=== PATIENT | female | born 1980 | race Two or more races ===

== ENCOUNTER 2018-01-15 00:59 | Emergency (ER) | payer OTHER ==
--- NOTE | 2018-01-15 01:12 | PDOC ---
History of Present Illness - General Chief Complaint: Pain, Acute Stated Complaint: PIMLES UNDER ARM X 1 YR/PAIN TO RIGHT BREAST Time Seen by Provider: 01/15/18 01:12 - History of Present Illness Initial Comments: This 37-year-old woman, who speaks only Slovenian and recently migrated here from [place] (approximately 3 months ago), presents with painful swelling of the right breast for the last 3 days. History is interpreted by friend. Patient was started on Keflex 500 mg 3 times a day approximately a month ago for axillary cellulitis/abscesses. Although the patient had taken the medication intermittently over the last month (she states because of fasting considerations during ), the left axillary boils have largely resolved. A few days ago, she noticed mildly erythematous, mildly edematous, tender areas of the medial portion of the right breast. No previous history of abscesses/ cellulitis of the breast. Patient is not breast feeding and denies trauma to the right breast. No nipple discharge noted. No history of fever/chills. Patient states that she believes she has an ALLERGY to medications, possibly an antibiotic but she has no idea of the name of the medication. Past History - Past Medical History Home Medications: Ambulatory Orders Cephalexin [Keflex] 500 mg PO BID 01/15/18 Diclofenac Sodium 75 mg PO DAILY 01/15/18 Omeprazole 20 mg PO DAILY 01/15/18 Review of Systems - Review of Systems Able to Perform ROS?: Yes Comments:: 12 point review of systems is negative except for what is noted in the history of present illness *Physical Exam - Physical Exam Comments: GENERAL: Adult female, Slovenian speaking only, in no acute distress HEAD: Normal with no signs of trauma. EYES: PERRLA, EOMI, sclera anicteric, conjunctiva clear. ENT: Ears normal, nares patent, oropharynx clear without exudates. Dry mucous membranes. NECK: Normal range of motion, supple without lymphadenopathy, JVD, or masses. LUNGS: Breath sounds equal, clear to auscultation bilaterally. No wheezes, and no crackles. CHEST WALL: Right breast-1 cm x 2 cm mildly erythematous, mildly tender, nonfluctuant area of the medial mid breast No open area in the region; no discharge from the area of tenderness HEART:Regular rate and rhythm, normal S1 and S2 without murmur, rub or gallop. ABDOMEN:.normal bowel sounds No guarding,tenderness or rebound.No masses No distention. EXTREMITIES: Normal range of motion, no edema. No clubbing or cyanosis. No erythema, or tenderness. NEUROLOGICAL: Cranial nerves II through XII grossly intact. Normal speech. No focal neurological deficits. MUSCULOSKELETAL: Back non-tender to palpation, no CVA tenderness SKIN: Warm, Dry, normal turgor, no rashes or lesions noted. Medical Decision Making - Medical Decision Making This 37-year-old woman, recently migrated here from [place], presents with painful , tender, erythematous areas of the right breast (medially). No history of skin break or other trauma to the breast and patient is not breast- feeding. Although the origin of the lesion is unclear, the patient does have recent history of skin abscesses (all have resolved with antibiotic treatment; patient has never needed an incision and drainage procedure). Because area is erythematous and tender, patient will be advised to continue the Keflex prescribed for her axillary abscesses. Since patient is very unclear which medication/antibiotic that she is ALLERGIC to, and has tolerated Keflex without adverse reaction or ALLERGIC reaction, we will keep her on Keflex at this time. Patient given 2 referrals: Dr. Flowers for general medicine and Maulik mohr for evaluation of the breast lesion . She should return to ER if she has extreme pain, drainage, fever/chills *DC/Admit/Observation/Transfer Diagnosis at time of Disposition: Cellulitis of right breast - Discharge Dispostion Disposition: HOME Condition at time of disposition: Stable - Referrals Referrals: Tom Cruz MD [Staff Physician] - Jose Flowers MD [Staff Physician] - - Patient Instructions Printed Discharge Instructions: DI for Mastitis Additional Instructions: Local warmth to the area of right breast Continue Keflex 500 mg 3 times a day as prescribed Follow-up with Dr.Ashikari mohr for breast evaluation Follow-up with or for general medical care as discussed - Post Discharge Activity
[2018-01-15 01:17] VITALS: BP 151/110; PULSE 100; BMI 46.8
== END 2018-01-15 01:42 | disposition home or self-care (01) ==
LOC: FER 00:59
DX: N61.0 Mastitis without abscess (principal)
CPT/HCPCS: 99281-25

== ENCOUNTER 2018-03-07 11:26 | Day surgery (SDC) | payer OTHER ==
[2018-03-07 11:44] VITALS: BMI 45.4
[2018-03-07] MEDS ORDERED: ACETAMINOPHEN 1000 MG/100 ML VIAL (NON FORMULARY) IVPB ONE (12:40)
--- NOTE | 2018-03-07 12:40 | HP ---
History & Physical Update - History History: No Change - Physical Physical: No Change - Assessment Assessment: No Change - Plan Plan: No Change
[2018-03-07] MEDS ORDERED: IBUPROFEN 800 MG/8 ML IJ IVPB SCH (12:45)
[2018-03-07] MEDS ORDERED: DEXTROSE 5%-0.45% SALINE 1,000 ML IV SCH (12:45)
[2018-03-07] MEDS ORDERED: LIDOCAINE HCL/PF 2% SDV 5ML VIAL ONE (13:14)
[2018-03-07] MEDS ORDERED: PROPOFOL 20 ML ONE ×3 (13:14→13:15)
[2018-03-07] MEDS ORDERED: MIDAZOLAM HCL 2 MG/2 ML SINGLE DOSE VIAL ONE (13:15)
[2018-03-07] MEDS ORDERED: ceFAZolin SODIUM 1 GM VIAL ONE (13:29)
[2018-03-07] MEDS ORDERED: ceFAZolin SODIUM 1 GM VIAL IVPB ONE (13:30)
[2018-03-07] MEDS ORDERED: IOHEXOL 300 MG/ML INFUS..BTL IV ONE (13:38)
[2018-03-07] MEDS ORDERED: LACTATED RINGERS SOLUTION 1,000 ML IV SCH (14:00)
[2018-03-07] MEDS ORDERED: oxyCODONE HCL 5 MG TABLET PO PRN (14:00)
[2018-03-07] MEDS ORDERED: PROMETHAZINE HCL 25 MG/1 ML VIAL IVPUSH PRN (14:00)
[2018-03-07] MEDS ORDERED: ONDANSETRON 4 MG/2 ML VIAL IVPUSH PRN (14:00)
[2018-03-07 14:33] VITALS: TEMP 98.5
[2018-03-07] MEDS ORDERED: ONDANSETRON 4 MG/2 ML VIAL ONE (15:37)
[2018-03-07] MEDS ORDERED: ONDANSETRON 4 MG/2 ML VIAL IVPUSH ONE (15:40)
[2018-03-07] MEDS ORDERED: oxyCODONE HCL 5 MG TABLET PO ONE (16:30)
[2018-03-07] MEDS ORDERED: oxyCODONE HCL 5 MG TABLET ONE (16:34)
[2018-03-07] MEDS ORDERED: IBUPROFEN 800 MG/8 ML IJ IVPB ONE ×2 (16:45→17:03)
[2018-03-07] MEDS ORDERED: PROMETHAZINE HCL 25 MG/1 ML VIAL ONE (16:53)
[2018-03-07] MEDS ORDERED: PHENAZOPYRIDINE HCL 100 MG TABLET (FP) PO STA (17:47)
[2018-03-07] MEDS ORDERED: PHENAZOPYRIDINE HCL 100 MG TABLET (FP) PO ONE (17:58)
[2018-03-07 19:12] VITALS: BP 120/71; PULSE 67
--- NOTE | 2018-04-06 10:43 | OP ---
DATE OF OPERATION: 03/07/2018 PREOPERATIVE DIAGNOSIS: Renal colic and left hydronephrosis. POSTOPERATIVE DIAGNOSIS: Renal colic and left hydronephrosis. PROCEDURE: Cystoscopy, left retrograde pyelogram, left ureteral stent placement. SURGEON: Darion Mahajan MD ESTIMATED BLOOD LOSS: Minimal. PREOPERATIVE INDICATIONS: Patient is a 37-year-old female with a history of left-sided renal colic. CT reveals mild hydronephrosis. However, no evidence of any obstruction seen distally. She comes to the OR cystoscopy, stent, and retrograde pyelogram. DESCRIPTION OF PROCEDURE: Patient brought to the OR, placed on the table in supine position, given general anesthesia and IV antibiotics, and placed on modified lithotomy position. The groin was prepped and draped sterilely. Cystoscopy was performed. The bladder was unremarkable. No tumors or stones were seen. Left UO was then visualized. Wire was passed up into the left kidney, and an open-ended catheter was placed. Retrograde pyelogram revealed relatively normal anatomy with maybe a slight dilation. No evidence of an obstruction was seen. A 6 x 24 JJ ureteral stent was placed over the wire, 1 loop in the bladder and 1 loop in the kidney. Bladder was emptied. Patient was woken up. DARION MAHAJAN M.D. [id number]
== END 2018-03-07 19:05 | disposition home or self-care (01) ==
LOC: JASU-SURG 11:26
PROVIDERS: ATTEND Urology
PROC: 0T778DZ Dilation of Left Ureter with Intraluminal Device, Via Natural or Artificial Opening Endoscopic (ICD-10-PCS; principal; 2018-03-07 10:30)
PROC: BT1FYZZ Fluoroscopy of Left Kidney, Ureter and Bladder using Other Contrast (ICD-10-PCS; 2018-03-07 10:30)
DX: N23 Unspecified renal colic (principal); N13.30 Unspecified hydronephrosis
CPT/HCPCS: 76000-TC-FY; 84703; 94760; J0131

== ENCOUNTER 2018-04-06 22:11 | Emergency (ER) | payer OTHER ==
[2018-04-06 22:20] VITALS: BP 124/81; PULSE 86; TEMP 98.9; BMI 42.9
--- NOTE | 2018-04-06 22:23 | PDOC ---
History of Present Illness - General History Source: Patient Exam Limitations: No Limitations - History of Present Illness Initial Comments: 04/06/18 23:07 The patient is a 37 year old female with a past medical history of left urethra stent secondary to kidney stone (placed on 03/07/18) who presents to the ED with complaints of left foot pain and swelling for several days. The patient reports a gradual onset of intermittent left foot pain and swelling. She states her left foot pain radiates to her left knee and describes it as a sharp, stabbing like sensation and is a 7/10 in severity. She also reports a gradual onset of lower back pain associated with present symptoms. Patient denies taking any medicine for the pain. Denies recent trauma/injury. Denies recent travel or long car rides. Denies a history of blood clots. Denies fever or chills. Denies chest pain or shortness of breath. Denies abdominal pain, nausea, vomiting, or diarrhea. 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 MEDICATIONS: reviewed ALLERGIES: As per nursing notes General: No fevers or chills, no weakness, no weight loss HEENT: No change in vision. No sore throat,. No ear pain CardioVascular: No chest pain or shortness of breath Respiratory:No cough, or wheezing. Gastrointestinal: no nausea, vomiting, diarrhea or constipation, No rectal bleeding Genitourinary: No dysuria, hematuria, or frequency Musculoskeletal: + foot pain, back pain. Neurologic: No headache, vertigo, dizziness or loss of consciousness Psychiatric: nor depression Skin: No rashes or easy bruising Endocrine: no increased thirst or abnormal weight change Allergic: no skin or latex allergy All other systems reviewed and normal GENERAL: The patient is awake, alert, and fully oriented, in no acute distress. HEAD: Normal with no signs of trauma. EYES: Pupils equal, round and reactive to light, extraocular movements intact, sclera anicteric, conjunctiva clear. EXTREMITIES: + 1+ pitting edema to mid calf. No palpable tenderness in the cord of the thigh, no tenderness in the popliteal, no tenderness of the foot or lower leg. Normal range of motion. BACK: + No pain on palpation of the lumbar spine. Tenderness in the left sciatic notch. NEUROLOGICAL: Normal speech, normal gait. PSYCH: Normal mood, normal affect. SKIN: Warm, Dry, normal turgor, no rashes or lesions noted. <Willy Camacho - Last Filed: 04/06/18 23:07> - General History Source: Patient Exam Limitations: No Limitations - History of Present Illness Initial Comments: 04/07/18 00:21 A portion of this note was documented by scribe services under my direction. I have reviewed the details of the note, within reason, and agree with the documentation. The case summary and management plan written by me. Ultrasound Doppler negative for DVT Assessment plan: This is a 37-year-old female comes in complaining of left foot pain and leg swelling. Patient had ultrasound Doppler that was negative for DVT.. Patient given Motrin for the pain. Patient referred back to her primary care doctor for further evaluation and workup. <Jasiel Liang I - Last Filed: 04/07/18 00:24> - General Chief Complaint: Pain Stated Complaint: LT FOOT PAIN/SWELLING Time Seen by Provider: 04/06/18 22:22 Past History <Willy Camacho - Last Filed: 04/06/18 23:07> - Past Medical History COPD: No DVT: No GI Disorders: No (symptons of reflux) HTN: No (no medications) Kidney Stones: Yes - Surgical History Neurologic Surgery: No - Suicide/Smoking/Psychosocial Hx Smoking History: Never smoked Have you smoked in the past 12 months: No Hx Alcohol Use: No Drug/Substance Use Hx: No Substance Use Type: None Hx Substance Use Treatment: No <Jasiel Liang I - Last Filed: 04/07/18 00:24> - Past Medical History Allergies/Adverse Reactions: Allergies Allergy/AdvReac Type Severity Reaction Status Date / Time No Known Allergies Allergy Verified 03/09/18 09:25 Home Medications: Ambulatory Orders NK [No Known Home Medication] 04/06/18 *Physical Exam - Vital Signs Last Vital Signs Temp Pulse Resp BP Pulse Ox 98.9 F 86 16 124/81 99 04/06/18 22:15 04/06/18 22:15 04/06/18 22:15 04/06/18 22:15 04/06/18 22:15 <Willy Camacho - Last Filed: 04/06/18 23:07> - Vital Signs Last Vital Signs Temp Pulse Resp BP Pulse Ox 98.9 F 86 16 124/81 99 04/06/18 22:15 04/06/18 22:15 04/06/18 22:15 04/06/18 22:15 04/06/18 22:15 <Jasiel Liang I - Last Filed: 04/07/18 00:24> ED Treatment Course - Medications Given in the ED: ED Medications Discontinued Medications Generic Name Dose Route Start Last Admin Trade Name Ethan PRN Reason Stop Dose Admin Ibuprofen 600 mg 04/06/18 22:48 04/06/18 22:53 Motrin - PO 04/06/18 22:49 600 mg ONCE ONE Administration <Willy Camacho - Last Filed: 04/06/18 23:07> *DC/Admit/Observation/Transfer - Attestations Scribe Attestion: 04/06/18 23:07 Documentation prepared by Willy Camacho, acting as medical technical writer for Jasiel Liang MD <Willy Camacho - Last Filed: 04/06/18 23:07> - Discharge Dispostion Decision to Admit order: No <Jasiel Liang I - Last Filed: 04/07/18 00:24> Diagnosis at time of Disposition: Leg edema, left, Left foot pain - Discharge Dispostion Disposition: HOME Condition at time of disposition: Stable - Referrals Referrals: Sandrine Reyes MD [Primary Care Provider] - - Patient Instructions Additional Instructions: Your workup was negative for any of blood clot in her leg. Try to elevate the leg as much as possible take Tylenol or Motrin as needed for the pain. Call your doctor on Monday and get an appointment to follow-up if she still have any pain and swelling. Return to the emergency department immediately with ANY new, persistent or worsening symptoms. Continue any medications as previously prescribed by your physician. You should follow up with your primary doctor as soon as possible regarding today's emergency department visit. . Please make sure your doctor reviews the results of your emergency evaluation. Thank you for coming to the Emergency Department today for your care. It was a pleasure to see you today. Please note that your evaluation is INCOMPLETE until you follow-up with your doctor. - Post Discharge Activity
[2018-04-06] MEDS ORDERED: IBUPROFEN 600 MG TABLET (FP) PO ONE ×2 (22:48→22:50)
== END 2018-04-07 00:26 | disposition home or self-care (01) ==
LOC: FER 22:11
DX: M79.672 Pain in left foot (principal); M79.89 Other specified soft tissue disorders
CPT/HCPCS: 93971-TC; 99282-25

== ENCOUNTER 2018-04-25 16:35 | Emergency (ER) | payer OTHER ==
--- NOTE | 2018-04-25 16:39 | PDOC ---
Rapid Medical Evaluation Time Seen by Provider: 04/25/18 16:37 Medical Evaluation: Allergies Allergy/AdvReac Type Severity Reaction Status Date / Time No Known Allergies Allergy Verified 03/09/18 09:25 04/25/18 16:37 I have performed a brief in-person evaluation of this patient. The patient presents with a chief complaint of: both feet swollen for a 2 weeks. no fever, seen here on 04/12/18 for same Pertinent physical exam findings:swelling both feet I have ordered the following:nothing The patient will proceed to the ED for further evaluation. 04/25/18 16:41
[2018-04-25 16:41] VITALS: TEMP 98.6; BMI 32.5
--- NOTE | 2018-04-25 17:48 | PDOC ---
History of Present Illness - General Chief Complaint: Edema Stated Complaint: EDEMA Time Seen by Provider: 04/25/18 16:37 History Source: Patient Exam Limitations: Language Barrier - History of Present Illness Initial Comments: 04/25/18 17:36 *Pt speaks Frisian/Alex. I translated for patient. Pt is a 37yo f with no significant pmh presenting to ED with complaints of bilateral pedal edema in her feet associated with pain. Swelling and pain has been going on for 2 weeks. Swelling is not in the calves or legs and no swelling elsewhere. She denies fever, chills, chest pain, SOB, headaches, numbness/tingling, abdominal pains, n/v/d. She has a history of kidney stones and had a stent placed. She tried taking Motrin for the pain but it did not help. She sees Dr. Reyes but he is on vacation. She denies injury, bug bites. LMP April 02. PCP: Dr. Reyes PMH: none Meds: none Allergies: nkda Social: denies Past History - Past Medical History Allergies/Adverse Reactions: Allergies Allergy/AdvReac Type Severity Reaction Status Date / Time No Known Allergies Allergy Verified 04/25/18 16:40 Home Medications: Ambulatory Orders NK [No Known Home Medication] 04/06/18 COPD: No CHF: No DVT: No GI Disorders: No (symptons of reflux) HTN: No (no medications) Kidney Stones: Yes - Surgical History Neurologic Surgery: No - Suicide/Smoking/Psychosocial Hx Smoking History: Never smoked Have you smoked in the past 12 months: No Information on smoking cessation initiated: No Hx Alcohol Use: No Drug/Substance Use Hx: No Substance Use Type: None Hx Substance Use Treatment: No *Physical Exam - Vital Signs Last Vital Signs Temp Pulse Resp BP Pulse Ox 98.6 F 89 18 122/71 100 04/25/18 16:38 04/25/18 16:38 04/25/18 16:38 04/25/18 16:38 04/25/18 16:38 ED Treatment Course - LABORATORY CBC & Chemistry Diagram: 04/25/18 17:57 04/25/18 17:57 *DC/Admit/Observation/Transfer Diagnosis at time of Disposition: Bilateral swelling of feet - Discharge Dispostion Disposition: HOME Condition at time of disposition: Stable Decision to Admit order: No - Referrals Referrals: Eric,Deluca, MD [Primary Care Provider] - - Patient Instructions Printed Discharge Instructions: DI for Dependent Edema Additional Instructions: You were seen here today for swelling of the feet. All the blood tests were normal. The swelling is most likely due to gravity. Please keep your feet elevated when you are sitting at the level of your hip. Place pillows underneath your feet when you are in bed. Remember to call Dr. Reyes's office to make an appointment. Please come back to the emergency room if: the pain gets worse, swelling gets worse, you notice a rash develop, you have a fever, you have shortness of breath , you develop chest pain or if any new concerning symptom develops. Thank you - Post Discharge Activity
[2018-04-25 18:15] LABS: HEMOGLOBIN 12.1 GM/dL (10.7-15.3); MCH 26.7 pg (25.7-33.7); MCHC 32.7 g/dl (32.0-36.0); MEAN CELL VOLUME 81.7 fl (80-96); MEAN PLT VOLUME 8.8 fl (7.5-11.1); PLATELET COUNT 333 K/MM3 (134-434); RBC 4.53 M/mm3 (3.60-5.2); RDW 12.9 % (11.6-15.6); WHITE BLOOD COUNT 8.2 K/mm3 (4.0-10.0)
[2018-04-25 18:36] LABS: URINE APPEARANCE CLEAR; URINE BILIRUBIN NEGATIVE (<2.0 mg/dL); URINE COLOR LTYELLOW; URINE GLUCOSE (UA) NEGATIVE (NEGATIVE); URINE KETONE NEGATIVE (NEGATIVE); URINE LEUK ESTERASE TRACE (NEGATIVE); URINE NITRITE NEGATIVE (NEGATIVE); URINE PROTEIN NEGATIVE (NEGATIVE); URINE UROBILINOGEN NEGATIVE mg/dL (0.2-1.0)
[2018-04-25 18:41] LABS: EPI CELLS RARE /HPF (FEW); URINE BACTERIA RARE /hpf (NONE SEEN); URINE MUCUS RARE
--- NOTE | 2018-04-25 18:43 | PDOC ---
Attending Attestation - Resident Resident Name: Joy Fernández - ED Attending Attestation I have performed the following: I have examined & evaluated the patient, The case was reviewed & discussed with the resident, I agree w/resident's findings & plan, Exceptions are as noted - HPI HPI: 04/25/18 18:40 The patient is a 37 year old female with no significant PMH who presents to the emergency department with lower extremity foot edema for 2 weeks. She reports some associated pain. Pt was seen in ED 2 weeks ago and had a doppler of her LLE that was normal. The patient denies any other symptoms. She denies any fever , chills, nausea, vomiting, diarrhea, constipation or urinary symptoms. She denies any chest pain, shortness of breath, headache or dizziness. The patient denies any other complaints. PCP: Dr. Reyes - Physicial Exam PE: 04/25/18 18:41 "GENERAL: Awake, alert, and fully oriented, in no acute distress. HEAD: No signs of trauma EYES: PERRLA, EOMI, sclera anicteric, conjunctiva clear ENT: Auricles normal inspection, hearing grossly normal, nares patent, oropharynx clear without exudates. Moist mucosa NECK: Nontender, no stepoffs, Normal ROM, supple, no lymphadenopathy, JVD, or masses LUNGS: Breath sounds equal, clear to auscultation bilaterally. No wheezes, and no crackles HEART: Regular rate and rhythm, normal S1 and S2, no murmurs, rubs or gallops ABDOMEN: Soft, nontender, normoactive bowel sounds. No guarding, no rebound. No masses EXTREMITIES: +1 PE BLE, Normal range of motion, no edema. No clubbing or cyanosis. No cords, erythema, or tenderness NEUROLOGICAL: Cranial nerves II through XII intact. 5/5 strength and sensation in all extremities, Normal speech, normal gait, normal cerebellar function SKIN: Warm, Dry, normal turgor, no rashes or lesions noted. - Medical Decision Making 04/25/18 18:41 37 F with bilateral pedal edema. No DVT risk factors and swelling is symmetric. Pt had LLE doppler 2 weeks ago that was negative. Will check labs to assess liver and renal function. Also check UPT. - Labs, UA, UPT 04/25/18 19:59 Labs wnl Pt is well appearing, with normal vitals. Clinically stable for DC at this time. I discussed the physical exam findings, ancillary test results and final diagnoses with the patient. I answered all of the patient's questions. The patient was satisfied with the care received and felt comfortable with the discharge plan and treatment plan. The patient agrees to follow up with the primary care physician within 24-72 hours.
[2018-04-25 18:59] LABS: ALBUMIN 3.3 g/dl (3.4-5.0); ALK PHOS 90 U/L (45-117); ANION GAP 7 MMOL/L (8-16); BILIRUBIN,TOTAL 0.2 mg/dL (0.2-1); BLOOD UREA NITROGEN 8 mg/dL (7-18); CALCIUM 8.8 mg/dL (8.5-10.1); CHLORIDE 105 mmol/L (98-107); CO2 26 mmol/L (21-32); CREATININE 0.5 mg/dL (0.55-1.3); GLUCOSE,RANDOM 91 mg/dL (74-106); POTASSIUM 4.5 mmol/L (3.5-5.1); SGOT/AST 15 U/L (15-37); SGPT/ALT 19 U/L (13-61); SODIUM 138 mmol/L (136-145); TOT PROT 7.9 g/dl (6.4-8.2)
[2018-04-25 20:33] VITALS: BP 105/62; PULSE 84
== END 2018-04-25 20:05 | disposition home or self-care (01) ==
LOC: JER 16:35
DX: M79.672 Pain in left foot (principal); M79.671 Pain in right foot
CPT/HCPCS: 36415; 80053; 81003; 81015; 84703; 85027; 99282-25

== ENCOUNTER 2018-10-30 18:41 | Emergency (ER) | payer OTHER ==
--- NOTE | 2018-10-30 19:01 | PDOC ---
Rapid Medical Evaluation Time Seen by Provider: 10/30/18 18:58 Medical Evaluation: Allergies Allergy/AdvReac Type Severity Reaction Status Date / Time No Known Allergies Allergy Verified 10/30/18 18:59 10/30/18 18:59 I have performed a brief in-person evaluation of this patient. The patient presents with a chief complaint of: mouth sores Pertinent physical exam findings: black discoloration of tongue, bucchal and gingival surfaces I have ordered the following: nothing The patient will proceed to the ED for further evaluation. Discharge Disposition - Diagnosis Mouth sores - Referrals - Patient Instructions - Post Discharge Activity
[2018-10-30 19:03] VITALS: BP 130/75; PULSE 88; TEMP 98.6; BMI 41.5
--- NOTE | 2018-10-30 19:43 | PDOC ---
History of Present Illness - General Chief Complaint: Oral Ulcers Stated Complaint: EAR/SORE THROAT/SORES IN MOUTH Time Seen by Provider: 10/30/18 18:58 - History of Present Illness Initial Comments: 10/30/18 19:41 38-year-old female without comorbidities presents for evaluation of a painful hyperpigmented area on her tongue which is been present for the last 2 weeks Past History - Past Medical History Allergies/Adverse Reactions: Allergies Allergy/AdvReac Type Severity Reaction Status Date / Time No Known Allergies Allergy Verified 10/30/18 18:59 Home Medications: Ambulatory Orders NK [No Known Home Medication] 04/06/18 COPD: No CHF: No DVT: No GI Disorders: No (symptons of reflux) HTN: No (no medications) Kidney Stones: Yes - Surgical History Neurologic Surgery: No - Suicide/Smoking/Psychosocial Hx Smoking History: Never smoked Have you smoked in the past 12 months: No Hx Alcohol Use: No Drug/Substance Use Hx: No Substance Use Type: None Hx Substance Use Treatment: No Review of Systems - Review of Systems HEENTM: Yes: See HPI *Physical Exam - Vital Signs Last Vital Signs Temp Pulse Resp BP Pulse Ox 98.6 F 88 20 130/75 99 10/30/18 18:59 10/30/18 18:59 10/30/18 18:59 10/30/18 18:59 10/30/18 18:59 - Physical Exam Comments: 10/30/18 19:41 HEAD: NC/AT EYES: Conjuntiva clear NOSE: No d/c THROAT: Moist mucous membrances, oral pharanx clear, uvula midline; there is a hyperpigmented area on the posterior aspect of the tongue about the left side. MS: Full ROM in all joints without edema NEUROLOGIC: No gross sensory or motor deficits, NVID SKIN: Normal color and temperature no lesions or rashes Medical Decision Making - Medical Decision Making 10/30/18 19:41 I am unsure of the etiology of this hyperpigmented area, I will refer her to oral surgery. *DC/Admit/Observation/Transfer Diagnosis at time of Disposition: Mouth sores - Discharge Dispostion Disposition: HOME Condition at time of disposition: Stable Decision to Admit order: No - Referrals Referrals: Ana M Reyes [Primary Care Provider] - Darion Haywood [Staff Physician] - Tom Velazquez [Non Staff, Medical] - Samuel Yang [Staff Physician] - Sher Jordan MD [Non Staff, Medical] - Venu Carmona MD [Non Staff, Medical] - - Patient Instructions Additional Instructions: Please follow-up with oral surgery in 1-2 days for further evaluation and treatment options. Return to the emergency room should symptoms worsen. - Post Discharge Activity
== END 2018-10-30 19:45 | disposition home or self-care (01) ==
LOC: JERFT 18:41
DX: K13.79 Other lesions of oral mucosa (principal)
CPT/HCPCS: 99281-25

== ENCOUNTER 2018-11-16 09:31 | Emergency (ER) | payer OTHER ==
[2018-11-16 09:46] VITALS: TEMP 98.1; BMI 40.7
--- NOTE | 2018-11-16 10:23 | PDOC ---
History of Present Illness - General Chief Complaint: Chest Pain Stated Complaint: LEFT ARM PAIN Time Seen by Provider: 11/16/18 10:22 - History of Present Illness Initial Comments: 38yo [place]-speaking F with past medical history of HTN is presenting with chest pain. Patient states she was sent here by her primary care physician. Her primary complaints is related to pain she has had on her left axilla. Patient describes pimples she has had in her left armpit that cause her discomfort radiating down her left arm and on the left side of her neck. The pimple have been present for about two years. She has taken po clotrimazole at home for it. The pimples causes her such discomfort that she has been unable to find a comfortable sleeping position at night. Upon prompting, patient also endorsed left sided chest discomfort located below her clavicle. It is non-palpable and non-pleuritic. No nausea, vomiting, or diaphoresis. No personal or family history of [place]. Lifetime non-smoker. No hemoptysis, no recent surgical history, no recent immobilization, no hormone use, no history of DVT or PE. Denies fevers , chills, abdominal pain, or shortness of breath. [employer] [id number] Past History - Past Medical History Allergies/Adverse Reactions: Allergies Allergy/AdvReac Type Severity Reaction Status Date / Time No Known Allergies Allergy Verified 11/16/18 09:42 Home Medications: Ambulatory Orders Acetaminophen [Tylenol] 325 mg PO Q6H PRN #60 capsule 11/16/18 Cephalexin [Keflex] 500 mg PO QID #19 capsule 11/16/18 Lidocaine 5% Patch [Lidoderm -] 1 patch TP DAILY #7 patch 11/16/18 COPD: No CHF: No DVT: No GI Disorders: No (symptons of reflux) HTN: No (no medications) Kidney Stones: Yes - Surgical History Neurologic Surgery: No - Immunization History Immunization Up to Date: No - Suicide/Smoking/Psychosocial Hx Smoking History: Never smoked Have you smoked in the past 12 months: No Hx Alcohol Use: No Drug/Substance Use Hx: No Substance Use Type: None Hx Substance Use Treatment: No Review of Systems - Review of Systems Comments:: Constitutional: no fever, no chills HEENT: no throat pain, no dysphagia Cardiovascular: +chest pain, no palpitations Respiratory: no cough, no shortness of breath Gastrointestinal: no abdominal pain, no nausea Genitourinary: no dysuria, no frequency Musculoskeletal: no myalgia, no arthralgia Skin: no itching, +lesions Neurologic: no headache, no weakness *Physical Exam - Vital Signs Last Vital Signs Temp Pulse Resp BP Pulse Ox 98.1 F 85 18 131/73 98 11/16/18 09:42 11/16/18 09:42 11/16/18 09:42 11/16/18 09:42 11/16/18 09:42 - Physical Exam Comments: General: Awake, alert, and fully oriented, in no acute distress Head: No signs of trauma Eyes: EOMI, sclera anicteric ENT: Moist mucus membranes Neck: Normal ROM, supple Lungs: Lungs clear, Normal breath sounds Cardio: Regular rhythm, S1 and S2 present Abdomen: Soft, nontender. No guarding, no rebound, no masses Extremities: Normal range of motion, Distal pulses present SKIN: Warm, Dry, normal turgor; scattered non-vesicular papules present beneath left axilla without erythema or discharge and tender to palpation Neurologic: Cranial nerves II through XII grossly intact. Normal speech ED Treatment Course - LABORATORY CBC & Chemistry Diagram: 11/16/18 11:20 11/16/18 11:20 Medical Decision Making - Medical Decision Making 38yo F with past medical history of HTN is presenting with chest pain. DDX including but not limited to ACS, PE, MSK, skin lesion Cardiac workup EKG: rate 83, QTc 423, sinus rhythm with sinus arrhythmia CXR without acute pathology, my impression CBC WBC 7.3 K/mm3 (4.0-10.0) 11/16/18 11:20 RBC 4.35 M/mm3 (3.60-5.2) 11/16/18 11:20 Hgb 11.8 GM/dL (10.7-15.3) 11/16/18 11:20 Hct 35.9 % (32.4-45.2) 11/16/18 11:20 MCV 82.6 fl (80-96) 11/16/18 11:20 MCH 27.1 pg (25.7-33.7) 11/16/18 11:20 MCHC 32.8 g/dl (32.0-36.0) 11/16/18 11:20 RDW 14.0 % (11.6-15.6) 11/16/18 11:20 Plt Count 257 K/MM3 (134-434) D 11/16/18 11:20 MPV 9.0 fl (7.5-11.1) 11/16/18 11:20 Absolute Neuts (auto) 3.8 K/mm3 (1.5-8.0) 11/16/18 11:20 Neutrophils % 52.0 % (42.8-82.8) 11/16/18 11:20 Lymphocytes % 32.2 % (8-40) 11/16/18 11:20 Monocytes % 7.2 % (3.8-10.2) 11/16/18 11:20 Eosinophils % 7.8 % (0-4.5) H 11/16/18 11:20 Basophils % 0.8 % (0-2.0) 11/16/18 11:20 Nucleated RBC % 0 % (0-0) 11/16/18 11:20 No leukocytosis CMP Sodium 137 mmol/L (136-145) 11/16/18 11:20 Potassium 4.1 mmol/L (3.5-5.1) 11/16/18 11:20 Chloride 104 mmol/L (98-107) 11/16/18 11:20 Carbon Dioxide 26 mmol/L (21-32) 11/16/18 11:20 Anion Gap 7 MMOL/L (8-16) L 11/16/18 11:20 BUN 10 mg/dL (7-18) 11/16/18 11:20 Creatinine 0.5 mg/dL (0.55-1.3) L 11/16/18 11:20 Creat Clearance w eGFR 139.61 (>60) 11/16/18 11:20 Random Glucose 97 mg/dL (74-106) 11/16/18 11:20 Calcium 8.8 mg/dL (8.5-10.1) 11/16/18 11:20 Total Bilirubin 0.2 mg/dL (0.2-1) 11/16/18 11:20 AST 12 U/L (15-37) L 11/16/18 11:20 ALT 20 U/L (13-61) 11/16/18 11:20 Alkaline Phosphatase 97 U/L (45-117) 11/16/18 11:20 Creatine Kinase 76 U/L (26-192) 11/16/18 11:20 Troponin I < 0.02 ng/ml (0.00-0.05) 11/16/18 11:20 Total Protein 7.4 g/dl (6.4-8.2) 11/16/18 11:20 Albumin 3.2 g/dl (3.4-5.0) L 11/16/18 11:20 Tpn undetectable 11/16/18 12:28 Lidocaine patch, Toradol, Tylenol given for pain Keflex for presumptive treatment of soft tissue infection Patient's chest pain is likely related to her skin complaint.The atypical presentation lowers the suspicion for cardiac etiology. Low suspicion for PE as patient does not present with risk factors. Patient requesting to go home Discussed case with Dr. Zavala who is covering for Dr. Reyes's patients today Patient can follow up at the clinic on Monday. Discharged 11/16/18 12:34 *DC/Admit/Observation/Transfer Diagnosis at time of Disposition: Atypical chest pain - Discharge Dispostion Disposition: HOME Condition at time of disposition: Stable - Prescriptions Prescriptions: Acetaminophen [Tylenol] 325 mg PO Q6H PRN #60 capsule PRN Reason: Pain Cephalexin [Keflex] 500 mg PO QID #19 capsule Lidocaine 5% Patch [Lidoderm -] 1 patch TP DAILY #7 patch - Referrals Referrals: Sandrine Reyes MD [Primary Care Provider] - - Patient Instructions Printed Discharge Instructions: DI for Atypical Chest Pain Additional Instructions: You came into the ED for chest pain, neck pain, and left arm pain. We performed EKG, blood work, and an Xray which was within normal limits. Follow-up with Dr. Reyes on Monday discuss this ED visit and to further evaluate your chest pain. Your workup is not complete until you do so. Call and make an appointment. Prescriptions sent to your pharmacy for suspected skin infection. Take as instructed on the label. You can also try warm compresses at home to relieve your pain. Call for emergency medicine services or go to the emergency room right away if you have symptoms of a heart attack, including: Chest pain, which may feel like a crushing weight A sense of fullness, squeezing, or pressure in the chest Rapid, irregular heartbeat Pain, tingling or numbness in the left shoulder and arm, the neck or jaw, or the right arm Sweating Nausea or vomiting Lightheadedness, weakness, or fainting Shortness of breath If you think you have an emergency, call for medical help right away. - Post Discharge Activity
--- NOTE | 2018-11-16 10:33 | PDOC ---
Attending Attestation - Resident Resident Name: Isabella Trejo - ED Attending Attestation I have performed the following: I have examined & evaluated the patient, The case was reviewed & discussed with the resident, I agree w/resident's findings & plan - HPI HPI: 11/16/18 13:03 Ms. Zamorano 38 YOF with h/o HTN Sent in by DR Dennis for chest pain. She has had these boils/bumps under left axilla x 1 year, pain worsening there x 2 months. Now with worsening left sided chest pain x 4-5 days, where she has had long standing pimples/boils, now radiating pain to neck and arm and back, worse with palpation and moving.. Denies trauma. Denies exertional activity. No infectious sx, cough or congestion. Has tried advil with some relief. Nonsmoker No syncope, dizziness, sob, n/v, AP, focal weakness or paresthesias. - Physicial Exam PE: 11/16/18 13:03 Agree with the resident's HPI and PE as documented in the electronic medical record. NAD, well appearing, PERRL, EOMI, MMM, nl conjunctiva, anicteric; neck supple, no midline tenderness. +left paraspinal and trapezius and upper thoracic back ttp, no midline tenderness.. left axilla with hyperpigmentation and palp SQ nodules, tender to palpation. lungs clear, RRR, no murmur, abdomen soft nontender. HUNTER x4, no focal neuro deficits. No peripheral edema. normal color for ethnicity, WWP. no calf tenderness or swelling. no bilateral breast tenderness or skin findings. No rash or findings of zoster or dermatomal rash/distribution. 11/16/18 13:05 11/16/18 13:08 - Medical Decision Making 11/16/18 13:04 See HPI for details Vital signs reviewed, wnl. no fever or systemic sx. DDx chest pain: ACS, coronary vasospasm, NSTEMI, arrhythmia, unstable angina, PE , dissection, PUD, esophageal spasm, GERD, gastritis, costochondritis, pneumonia , pleurisy, pericarditis/myocarditis. dehydration, electrolyte/metabolic derangements. msk strain, spasm. Considered but clinically doubt based on HPI and PE: PERC neg, so doubt PE. unlikely dissection with sx. no e/o zoster or rash. Prior notes reviewed, including admissions, discharges and consultations. laboratory results and imaging reviewed, basic labs and lytes wnl, CXR_no acute chest pathology Cardiac panel_neg, doubt cardiac. EKG normal sinus rhythm at 83 bpm, no interval abnormalities, narrow QRS, ST and T wave segments and morphology normal. Nonspecific T wave abnormalities - low voltage waves, likely habitus related. no prior ED course- analgesia, topical lido reassess - clinical call to Dr Reyes's service, outpatient followup, for next Monday - analgesia reinforced, keflex for possible soft tissue infection in left axilla. Dispo: Pt informed of my clinical impression, treatment recommendations and disposition plan. All questions answered to patient's satisfaction and expressed understanding and comfort with this. Reasons for returning to the ED sooner discussed including new or persistent/worsening symptoms with the patient otherwise, follow up with primary care physician. At the time of discharge, the patient is alert, clinically improved, tolerating po and verbalizes understanding of instructions, satisfied with the care received and felt comfortable with the plan. Patient does not suffer from an acute life- threatening medical condition at this time she is safe for outpatient follow- up. 11/16/18 13:06 11/16/18 13:06 11/16/18 13:47 Heart Score/ECG Review - History History: Slightly suspicious - Electrocardiogram EKG: Non specific repolarization disturbance - Age Age: </= 45 - Risk Factors Risk Factors Heart Score: Yes Hx Hypertension Based on the list above the patient has:: 1-2 risk factors - Troponin Troponin: </= normal limit - Score Heart Score - Total: 2 #1 ECG reviewed & interpreted by me at: 10:10 General ECG Interpretation: Normal Rate, Normal Intervals, No acute ischemic changes Compared to previous ECG there are: Previous ECG unavail 11/16/18 13:06 EKG normal sinus rhythm at 83 bpm, no interval abnormalities, narrow QRS, ST and T wave segments and morphology normal. Nonspecific T wave abnormalities - low voltage waves, likely habitus related.
[2018-11-16 11:27] LABS: BASO % 0.8 % (0-2.0); EOS % 7.8 % (0-4.5); HEMATOCRIT 35.9 % (32.4-45.2); HEMOGLOBIN 11.8 GM/dL (10.7-15.3); LYMPH % 32.2 % (8-40); MCH 27.1 pg (25.7-33.7); MCHC 32.8 g/dl (32.0-36.0); MEAN CELL VOLUME 82.6 fl (80-96); MONO % 7.2 % (3.8-10.2); PLATELET COUNT 257 K/MM3 (134-434); RBC 4.35 M/mm3 (3.60-5.2); WHITE BLOOD COUNT 7.3 K/mm3 (4.0-10.0)
[2018-11-16 11:41] LABS: INR 1.03 (0.83-1.09); PROTHROMBIN TIME (PATIENT) 12.2 SEC (9.7-13.0)
[2018-11-16 11:44] LABS: ACTIVATED PTT 31.1 SECONDS (25.2-36.5)
[2018-11-16 12:00] LABS: ALBUMIN 3.2 g/dl (3.4-5.0); ALK PHOS 97 U/L (45-117); ANION GAP 7 MMOL/L (8-16); BILIRUBIN,TOTAL 0.2 mg/dL (0.2-1); BLOOD UREA NITROGEN 10 mg/dL (7-18); CALCIUM 8.8 mg/dL (8.5-10.1); CHLORIDE 104 mmol/L (98-107); CO2 26 mmol/L (21-32); CREATININE 0.5 mg/dL (0.55-1.3); GLUCOSE,RANDOM 97 mg/dL (74-106); POTASSIUM 4.1 mmol/L (3.5-5.1); SGOT/AST 12 U/L (15-37); SGPT/ALT 20 U/L (13-61); SODIUM 137 mmol/L (136-145); TOT PROT 7.4 g/dl (6.4-8.2)
[2018-11-16] MEDS ORDERED: KETOROLAC TROMETHAMINE 30 MG/1 ML VIAL IVPUSH ONE (12:45)
[2018-11-16] MEDS ORDERED: LIDOCAINE 5% TOPICAL PATCH TP ONE (12:45)
[2018-11-16] MEDS ORDERED: ACETAMINOPHEN 325 MG TABLET (FP) PO ONE (12:46)
[2018-11-16] MEDS ORDERED: CEPHALEXIN MONOHYDRATE 500 MG CAPSULE (UD) PO ONE (12:48)
[2018-11-16] MEDS ORDERED: LIDOCAINE 5% TOPICAL PATCH ONE (13:04)
[2018-11-16] MEDS ORDERED: CEPHALEXIN MONOHYDRATE 500 MG CAPSULE (UD) ONE (13:05)
[2018-11-16] MEDS ORDERED: ACETAMINOPHEN 325 MG TABLET (FP) ONE (13:05)
[2018-11-16] MEDS ORDERED: KETOROLAC TROMETHAMINE 30 MG/1 ML VIAL ONE (13:06)
[2018-11-16 14:01] VITALS: BP 109/89; PULSE 87
[2018-11-16] MEDS ORDERED: LIDOCAINE PATCH REMOVAL MC SCH (22:00)
--- NOTE | 2018-11-17 15:15 | EKG ---
Test Reason : Blood Pressure : / mmHG Vent. Rate : 083 BPM Atrial Rate : 083 BPM P-R Int : 144 ms QRS Dur : 074 ms QT Int : 360 ms P-R-T Axes : 057 013 009 degrees QTc Int : 423 ms NORMAL SINUS RHYTHM WITH SINUS ARRHYTHMIA LOW VOLTAGE QRS BORDERLINE ECG NO PREVIOUS ECGS AVAILABLE Confirmed by POOJA LOPEZ MD ([id number]) on 11/17/2018 3:15:12 PM Referred By: Confirmed By:POOJA LOPEZ MD
== END 2018-11-16 14:01 | disposition home or self-care (01) ==
LOC: JER 09:31
PROC: 3E0333Z Introduction of Anti-inflammatory into Peripheral Vein, Percutaneous Approach (ICD-10-PCS; principal; 2018-11-16)
DX: R07.89 Other chest pain (principal); K21.9 Gastro-esophageal reflux disease without esophagitis; N20.0 Calculus of kidney
CPT/HCPCS: 36415; 71045-TC-FY; 80053; 82550; 84484; 84703; 85025; 85610; 85730; 93005; 93010; 96374; 99283-25

== ENCOUNTER 2018-12-17 17:13 | Emergency (ER) | payer OTHER | END 2018-12-17 18:14 | disposition home or self-care (01) | LOC: JERFT 17:13 ==

== ENCOUNTER 2019-10-07 09:20 | Observation (INO) | payer OTHER ==
[2019-10-07] MEDS ORDERED: SODIUM CHLORIDE 1,000 ML IV STA ×2 (09:29→09:30)
--- NOTE | 2019-10-07 09:32 | PDOC ---
History of Present Illness - General Stated Complaint: IRREGULAR HEART BEAT Time Seen by Provider: 10/07/19 09:26 History Source: Patient Exam Limitations: No Limitations - History of Present Illness Initial Comments: 10/07/19 09:26 Patient is a 39F who presented to outpatient surgery for a myomectomy found to have tachycardia. Patient endorses shortness of breath and palpitations that started this morning. Patient has been NPO since 11pm for her surgery. Denies fevers, chills, nausea, vomiting. Denies chest pain, leg swelling, abdominal pain. Denies headache, neck pain. Denies stimulant and drug use. Past History - Past Medical History Allergies/Adverse Reactions: Allergies Allergy/AdvReac Type Severity Reaction Status Date / Time No Known Allergies Allergy Verified 10/07/19 09:33 Home Medications: Ambulatory Orders Sulfamethoxazole/Trimethoprim [Sulfamethoxazole-Tmp Ds Tablet] 1 each PO BID 10/04/19 COPD: No CHF: No DVT: No GI Disorders: No HTN: No Kidney Stones: Yes - Surgical History Neurologic Surgery: No - Immunization History Immunization Up to Date: No - Psycho Social/Smoking Cessation Hx Smoking History: Never smoked Have you smoked in the past 12 months: No Hx Alcohol Use: No Drug/Substance Use Hx: No Substance Use Type: None Hx Substance Use Treatment: No Review of Systems - Review of Systems Able to Perform ROS?: Yes Comments:: 10/07/19 09:30 GENERAL/CONSTITUTIONAL: No fever or chills. No weakness. HEAD, EYES, EARS, NOSE AND THROAT: No change in vision. No sore throat. CARDIOVASCULAR: No chest pain +shortness of breath RESPIRATORY: No cough, wheezing, or hemoptysis. GASTROINTESTINAL: No nausea, vomiting, diarrhea or constipation. GENITOURINARY: No dysuria, frequency, or change in urination. MUSCULOSKELETAL: No joint or muscle swelling or pain. No neck or back pain. SKIN: No rash NEUROLOGIC: No headache, vertigo, loss of consciousness, or change in strength/sensation. ENDOCRINE: No increased thirst. No abnormal weight change HEMATOLOGIC/LYMPHATIC: No anemia, easy bleeding, or history of blood clots. ALLERGIC/IMMUNOLOGIC: No hives or skin allergy. *Physical Exam - Physical Exam 10/07/19 09:32 GENERAL: Awake, alert, and fully oriented, in no acute distress HEAD: No signs of trauma, normocephalic, atraumatic EYES: PERRLA, EOMI, sclera anicteric, conjunctiva clear ENT: Auricles normal inspection, hearing grossly normal, nares patent, oropharynx clear without exudates. Moist mucosa NECK: Normal ROM, supple, no lymphadenopathy, JVD, or masses LUNGS: No distress, speaks full sentences, clear to auscultation bilaterally HEART: Tachycardic, regular ABDOMEN: Soft, nontender, normoactive bowel sounds. No guarding, no rebound. No masses EXTREMITIES: Normal inspection, Normal range of motion, no edema. No clubbing or cyanosis. NEUROLOGICAL: Cranial nerves II through XII grossly intact. Normal speech, normal gait, no focal sensorimotor deficits SKIN: Warm, Dry, normal turgor, no rashes or lesions noted. ED Treatment Course - LABORATORY CBC & Chemistry Diagram: 10/07/19 09:22 10/07/19 09:22 Medical Decision Making - Medical Decision Making 10/07/19 09:32 Patient is 39F here today with SVT. Vitals notable for HR in 250s/260s. Blood pressure and mental status stable. Vagal maneuvers failed. HR to 140s after 6mg of adenosine. Initial EKG showed SVT with rate 252. Second EKG showed sinus tachycardia with rate of 144, no st elevations/depressions. Normal axis. Normal intervals. No significant t wave abnormalities. DDx includes, but is not limited to: ACS, dehydration, electrolyte abnormality, electrical conduction abnormality. Will evaluate with cbc, cmp, trop, mg, phos, cxr. Will admit. 10/07/19 11:05 CXR clear. 10/07/19 11:29 Trop negative. TSH slightly elevated. Glucose 253, CMP otherwise reassuring. CBC shows leukocytosis. Medicine paged. 10/07/19 12:26 Case d/w Dr Reyes. Requests cardiology consultation and admission to Dr Zavala. Patient updated. Discharge - Discharge Information Problems reviewed: Yes Clinical Impression/Diagnosis: SVT (supraventricular tachycardia) Condition: Stable - Admission Yes - Follow up/Referral Referrals: Ana M Reyes MD [Primary Care Provider] - - Patient Discharge Instructions - Post Discharge Activity
--- NOTE | 2019-10-07 09:35 | PDOC ---
Attending Attestation - Resident Resident Name: Darion Barba - ED Attending Attestation I have performed the following: I have examined & evaluated the patient, The case was reviewed & discussed with the resident, I agree w/resident's findings & plan, Exceptions are as noted - HPI HPI: 39 yo F scheduled for elective myomectomy today, found to have tachycardia. C/o SOB, palpitations, racing heartbeat. NPO overnight for surgery. Denies cp, swollen legs, recent surgery, immobilization. - Physicial Exam PE: GENERAL: Awake, alert, and fully oriented, in no acute distress HEAD: No signs of trauma EYES: PERRLA, EOMI, sclera anicteric, conjunctiva clear ENT: Auricles normal inspection, hearing grossly normal, nares patent, oropharynx clear without exudates. Dry mucosa NECK: Normal ROM, supple, no lymphadenopathy, JVD, or masses LUNGS: Breath sounds equal, clear to auscultation bilaterally. No wheezes, and no crackles HEART: Tachycardic with regular rhythm, normal S1 and S2, no murmurs, rubs or gallops ABDOMEN: Soft, nontender, normoactive bowel sounds. No guarding, no rebound. No masses EXTREMITIES: Normal range of motion, no edema. No clubbing or cyanosis. No cords, erythema, or tenderness NEUROLOGICAL: Cranial nerves II through XII grossly intact. Normal speech, normal gait. Motor and sensation intact SKIN: Warm, dry, normal turgor, no rashes or lesions noted. - Medical Decision Making Pt with SVT on arrival in ED, broke with adenosine. +Sinus tach afterwards. Will await labs, IV fluids (patient appears dehydrated). Discharge - Discharge Information Problems reviewed: Yes Clinical Impression/Diagnosis: SVT (supraventricular tachycardia) Condition: Stable - Follow up/Referral - Patient Discharge Instructions - Post Discharge Activity
[2019-10-07] MEDS ORDERED: ADENOSINE 6 MG/2 ML VIAL IVPUSH ONE (09:42)
[2019-10-07 10:18] LABS: BASO % 0.6 % (0-2.0); EOS % 4.8 % (0-4.5); HEMATOCRIT 38.2 % (32.4-45.2); HEMOGLOBIN 12.6 GM/dL (10.7-15.3); LYMPH % 43.7 % (8-40); MCH 27.9 pg (25.7-33.7); MCHC 32.9 g/dl (32.0-36.0); MEAN CELL VOLUME 84.7 fl (80-96); MONO % 7.4 % (3.8-10.2); NEUT % 43.5 % (42.8-82.8); PLATELET COUNT 357 K/MM3 (134-434); WHITE BLOOD COUNT 15.3 K/mm3 (4.0-10.0)
[2019-10-07 10:31] LABS: INR 0.99 (0.83-1.09); PROTHROMBIN TIME (PATIENT) 11.7 SEC (9.7-13.0)
[2019-10-07 10:34] LABS: ACTIVATED PTT 33.7 SECONDS (25.2-36.5)
[2019-10-07 11:25] LABS: ALBUMIN 3.3 g/dl (3.4-5.0); ALK PHOS 96 U/L (45-117); ANION GAP 11 MMOL/L (8-16); BILIRUBIN,TOTAL 0.3 mg/dL (0.2-1); CALCIUM 9.3 mg/dL (8.5-10.1); CHLORIDE 102 mmol/L (98-107); CO2 20 mmol/L (21-32); CREATININE 0.8 mg/dL (0.55-1.3); GLUCOSE,RANDOM 253 mg/dL (74-106); POTASSIUM 4.6 mmol/L (3.5-5.1); SGOT/AST 24 U/L (15-37); SGPT/ALT 23 U/L (13-61); SODIUM 134 mmol/L (136-145); TOT PROT 7.9 g/dl (6.4-8.2)
--- NOTE | 2019-10-07 13:25 | CON.CARD ---
Consult Consult Specialty:: Cardiology Referred by:: Anu Mckenzie MD Reason for Consultation:: PSVT - History of Present Illness Chief Complaint: Palpitations History of Present Illness: Ms. Zamorano 38 YOF with h/o HTN presented to outpatient surgery for a myomectomy found to have supraventricular tachycardia. Patient endorses shortness of breath and palpitations that started this morning. Patient has been NPO since 11pm for her surgery. Denies fevers, chills, nausea, vomiting. Denies chest pain, leg swelling, abdominal pain. Denies headache, neck pain. Denies stimulant and drug use. PSVT persisted despite vagal maneuvers broke with Adenosine 6 mg with relief of symptoms. - History Source History Provided By: Patient Limitations to Obtaining History: No Limitations - Past Medical History ...LMP: 09/22/19 - Alcohol/Substance Use Hx Alcohol Use: No - Smoking History Smoking history: Never smoked Have you smoked in the past 12 months: No Home Medications - Allergies Allergies/Adverse Reactions: Allergies Allergy/AdvReac Type Severity Reaction Status Date / Time No Known Allergies Allergy Verified 10/07/19 09:33 - Home Medications Home Medications: Ambulatory Orders Sulfamethoxazole/Trimethoprim [Sulfamethoxazole-Tmp Ds Tablet] 1 each PO BID 10/04/19 Review of Systems - Review of Systems Cardiovascular: reports: Palpitations, Shortness of Breath Neurological: reports: Dizziness Vital Signs: Vital Signs Temperature 98.5 F 10/07/19 10:47 Pulse Rate 115 H 10/07/19 10:47 Respiratory Rate 18 10/07/19 10:47 Blood Pressure 133/103 H 10/07/19 09:30 O2 Sat by Pulse Oximetry (%) 99 10/07/19 10:47 Constitutional: Yes: No Distress, Calm Neck: Yes: Supple Respiratory: Yes: Regular, CTA Bilaterally Gastrointestinal: Yes: Normal Bowel Sounds, Soft Cardiovascular: Yes: Regular Rate and Rhythm JVD: No Carotid Bruit: No Heart Sounds: Yes: S1, S2 Edema: No - Other Data Labs, Other Data: CBC, BMP 10/07/19 09:22 10/07/19 09:22 INR, PTT INR 0.99 (0.83-1.09) 10/07/19 09:22 Troponin, BNP 10/07/19 09:22 Troponin I < 0.02 Troponin, BNP 10/07/19 09:22 Troponin I < 0.02 Initial EKG showed SVT with rate 252. Ejection Fraction %: LVEF > or = 40 % Imaging - Results Chest X-ray: Report Reviewed (NAD) Problem List - Problems (1) Hypertension Code(s): I10 - ESSENTIAL (PRIMARY) HYPERTENSION Qualifiers: Hypertension type: essential hypertension Qualified Code(s): I10 - Essential (primary) hypertension (2) SVT (supraventricular tachycardia) Code(s): I47.1 - SUPRAVENTRICULAR TACHYCARDIA Assessment/Plan 1. PSVT->NSR post Adenosine having failed vagal maneuvers 2. Hypertension P:1. Start Toprol XL 25 qd 2. Echocardiogram to assess ventricular and valve fxn, may be performed as outpatient 3. Outpatient cardiology f/u to discuss treatment options including RFA vs continued medical therapy 4. Thank you for consultative opportunity
[2019-10-07] MEDS: metoPROLOL SUCCINATE 25 MG TAB.SR.24H (FP) PO SCH (16:14)
--- NOTE | 2019-10-07 18:10 | HP ---
Admitting History and Physical - Primary Care Physician PCP: Ana M Reyes - Admission Chief Complaint: tachycardia History of Present Illness: was sent [place] for tachycardia describes personal feeling of palpitations without chest pain or heaviness was scheduled for myomectomy this am in ed hr in ~260 received adenosine and hr decreased to low 100s History Source: Patient ( at bedside translates) Limitations to Obtaining History: Language Barrier - Past Medical History ...LMP: 09/22/19 Endocrine: Yes: Diabetes Mellitus Dermatology: Yes: Other (chronic hydradenitis suppurativa) Additional Past Medical History: Obesity - Past Surgical History Past Surgical History: Yes: - Smoking History Smoking history: Never smoked Have you smoked in the past 12 months: No - Alcohol/Substance Use Hx Alcohol Use: No History of Substance Use: reports: None - Social History Usual Living Arrangement: Yes: With Spouse ADL: Independent History of Recent Travel: No Home Medications - Allergies Allergies/Adverse Reactions: Allergies Allergy/AdvReac Type Severity Reaction Status Date / Time No Known Allergies Allergy Verified 10/07/19 09:33 - Home Medications Home Medications: Ambulatory Orders Sulfamethoxazole/Trimethoprim [Sulfamethoxazole-Tmp Ds Tablet] 1 each PO BID 10/04/19 Family Medical History Family History: Unable to Obtain Review of Systems - Review of Systems Constitutional: reports: No Symptoms HENT: reports: No Symptoms Neck: reports: No Symptoms Cardiovascular: reports: Palpitations (only today-never before) Respiratory: reports: No Symptoms Gastrointestinal: reports: No Symptoms Genitourinary: reports: No Symptoms Musculoskeletal: reports: No Symptoms Integumentary: reports: No Symptoms Psychiatric: reports: No Symptoms Physical Examination Vital Signs: Vital Signs Temperature 97.4 F L 10/07/19 15:29 Pulse Rate 108 H 10/07/19 15:29 Respiratory Rate 20 10/07/19 15:29 Blood Pressure 131/92 10/07/19 15:29 O2 Sat by Pulse Oximetry (%) 99 10/07/19 12:35 Constitutional: Yes: No Distress, Obese Eyes: Yes: Conjunctiva Clear HENT: Yes: Normocephalic Neck: Yes: Trachea Midline Cardiovascular: Yes: Regular Rate and Rhythm. No: Murmur Respiratory: Yes: Regular, CTA Bilaterally Gastrointestinal: Yes: Normal Bowel Sounds, Soft, Abdomen, Obese Edema: No Peripheral Pulses WNL: Yes Integumentary: Yes: WNL Neurological: Yes: WNL ...Motor Strength: WNL Labs: CBC, BMP 10/07/19 09:22 10/07/19 09:22 Abnormal Lab Results 10/07/19 10/07/19 09:22 09:22 WBC 15.3 H Lymphocytes % 43.7 H D Eosinophils % 4.8 H Sodium 134 L Carbon Dioxide 20 L Random Glucose 253 H Albumin 3.3 L TSH 6.06 H Problem List - Problems (1) Diabetes mellitus Code(s): E11.9 - TYPE 2 DIABETES MELLITUS WITHOUT COMPLICATIONS Qualifiers: Diabetes mellitus type: type 2 Diabetes mellitus chcf insulin use: without chcf use Diabetes mellitus complication status: without complication Qualified Code(s): E11.9 - Type 2 diabetes mellitus without complications (2) SVT (supraventricular tachycardia) Code(s): I47.1 - SUPRAVENTRICULAR TACHYCARDIA (3) Severe obesity (BMI 35.0-39.9) Code(s): E66.01 - MORBID (SEVERE) OBESITY DUE TO EXCESS CALORIES Assessment/Plan cardiology evaluation appreciated started toprol xl 25 mg po qd check a1c resume metformin-she stopped quite awhile ago-she did not think she has diabetes telemetry monitoring
[2019-10-07 20:27] VITALS: BMI 43.8
[2019-10-08] MEDS ORDERED: metFORMIN HCL 500 MG TABLET (FP) PO SCH (07:00)
[2019-10-08 07:19] LABS: BASO % 0.3 % (0-2.0); EOS % 6.4 % (0-4.5); HEMATOCRIT 33.1 % (32.4-45.2); LYMPH % 39.8 % (8-40); MCH 27.8 pg (25.7-33.7); MCHC 33.4 g/dl (32.0-36.0); MEAN CELL VOLUME 83.3 fl (80-96); MEAN PLT VOLUME 9.5 fl (7.5-11.1); MONO % 7.3 % (3.8-10.2); NEUT % 46.2 % (42.8-82.8); PLATELET COUNT 273 K/MM3 (134-434); RBC 3.97 M/mm3 (3.60-5.2); RDW 12.8 % (11.6-15.6); WHITE BLOOD COUNT 9.6 K/mm3 (4.0-10.0)
[2019-10-08 08:10] LABS: ALBUMIN 2.9 g/dl (3.4-5.0); BILIRUBIN,TOTAL 0.3 mg/dL (0.2-1); BLOOD UREA NITROGEN 6.2 mg/dL (7-18); CALCIUM 8.2 mg/dL (8.5-10.1); CREATININE 0.5 mg/dL (0.55-1.3); POTASSIUM 4.1 mmol/L (3.5-5.1); TOT PROT 6.5 g/dl (6.4-8.2)
[2019-10-08] MEDS: metoPROLOL SUCCINATE 25 MG TAB.SR.24H (FP) PO SCH (09:32)
[2019-10-08 09:42] VITALS: BP 122/70; PULSE 80; TEMP 98
--- NOTE | 2019-10-08 10:19 | DS ---
Physical Examination Vital Signs: Vital Signs Temperature 98 F 10/08/19 09:41 Pulse Rate 80 10/08/19 09:41 Respiratory Rate 18 10/08/19 09:41 Blood Pressure 122/70 10/08/19 09:41 O2 Sat by Pulse Oximetry (%) 100 10/07/19 20:36 Constitutional: Yes: No Distress, Obese Eyes: Yes: EOM Intact HENT: Yes: Normocephalic Neck: Yes: Trachea Midline Cardiovascular: Yes: Regular Rate and Rhythm Respiratory: Yes: CTA Bilaterally Gastrointestinal: Yes: Normal Bowel Sounds, Soft, Abdomen, Obese Peripheral Pulses WNL: Yes Integumentary: Yes: WNL Neurological: Yes: WNL Labs: CBC, BMP 10/08/19 05:46 10/08/19 05:46 Discharge Summary Problems reviewed: Yes Reason For Visit: SUPRAVENTRICULAR TACHYCARDIA Current Active Problems Diabetes mellitus (Acute) Hypertension (Acute) SVT (supraventricular tachycardia) (Acute) Hospital Course: admitted for svt in 250s with palpitation received adenosine and hr decreased to low 100s started toprol xl 25 mg po daily overnight telemetry monitoring is uneventful tsh is 6.06, hgba1c is 5.4 feels well has had echo this am medically stable to dc home and f/up as outpt continue toprol xl 25 mg po daily Condition: Stable - Instructions Referrals: Ana M Reyes MD [Primary Care Provider] - Disposition: HOME - Home Medications Comprehensive Discharge Medication List: Ambulatory Orders Sulfamethoxazole/Trimethoprim [Sulfamethoxazole-Tmp Ds Tablet] 1 each PO BID 10/04/19 Prescription Drug Monitoring Program (I-STOP) results: I-STOP not reviewed
--- NOTE | 2019-10-08 11:00 | ECHO ---
Version: 1 Name: ALBERTINA ROACH Exam: Adult Echocardiogram Study Date: 10/08/2019, 9:52 AM Age: 39 Years MMode/2D Measurements & Calculations IVSd: 0.89 cm LVIDs: 3.5 cm LVIDd: 5.0 cm LVPWd: 0.73 cm LAV (MOD-bp): 60.0 ml ACS: 1.79 cm Ao root diam: 2.6 cm LVOT diam: 1.96 cm LA dimension: 3.3 cm Doppler Measurements & Calculations MV E max dax: 108.0 cm/sec Med E/e': 10.5 MV A max dax: 78.4 cm/sec Med Peak E' Dax: 10.3 cm/sec MV E/A: 1.38 Lat E/e': 9.1 Lat Peak E' Dax: 11.9 cm/sec Ao max P.1 mmHg IRENA(I,D): 2.5 cm Ao mean P.35 mmHg LV V1 mean: 63.4 cm/sec Ao V2 max: 112.7 cm/sec LV V1 mean P.86 mmHg TR max dax: 199.5 cm/sec TR max P.9 mmHg Left Ventricle The left ventricular size, thickness and function are normal. Ejection Fraction = 60%. The transmitr al spectral Doppler flow pattern is normal for age. Right Ventricle The right ventricle is normal in size and function. Atria The left atrium is borderline dilated. Right atrial size is normal. Mitral Valve There is mild mitral valve thickening. There is mild mitral regurgitation. Tricuspid Valve The tricuspid valve is normal in structure and function. There is mild tricuspid regurgitation. Righ t ventricular systolic pressure is normal. Aortic Valve The aortic valve is normal in structure and function. Pulmonic Valve The pulmonic valve is not well visualized. Great Vessels The aortic root is normal size. Pericardium/Pleura There is no pericardial effusion. Tech Comments Suboptimal apicals due do body habitus. Summary Statements The left ventricular size, thickness and function are normal. Ejection Fraction = 60%. The right ventricle is normal in size and function. The left atrium is borderline dilated. Right atrial size is normal. The aortic valve is normal in structure and function. There is mild mitral valve thickening. There is mild mitral regurgitation. MD Adrianne Barnett/, 10:59 AM Ordering Physician: Felipe Giron Referring Physician: FELIPE GIRON Performed By: Rossana Vargas
--- NOTE | 2019-10-08 12:47 | PN ---
Progress Note (short form) - Note Progress Note: Chief Complaint: Events noted, notes reviewed, denies any palpitations, denies any chest discomfort or dyspnea, no evidence of recurrent arrhythmia/paroxysmal supraventricular tachycardia History of Present Illness: Seen and examined on telemetry. Events noted, notes reviewed, denies any palpitations, denies any chest discomfort or dyspnea, no evidence of recurrent arrhythmia/paroxysmal supraventricular tachycardia Medications: Current Medications Metformin HCl (Glucophage -) 500 mg PO BID@0700,1630 [facility] Last Admin: 10/08/19 06:41 Dose: 500 mg Documented by: Metoprolol Succinate (Toprol Xl -) 25 mg PO DAILY [facility] Last Admin: 10/08/19 09:32 Dose: 25 mg Documented by: Review of Systems Constitutional: denies: Chills or Fever Cardiovascular: as noted above Respiratory: no symptoms reported Gastrointestinal: denies: Nausea, Vomiting, Diarrhea, Constipation or Abdominal Pain Genitourinary: denies: Dysuria Musculoskeletal: denies: Joint Pain Neurological: denies: Dizziness or Headache Vital Signs: Last Vital Signs Temp Pulse Resp BP Pulse Ox 98 F 80 18 122/70 100 10/08/19 09:41 10/08/19 09:41 10/08/19 09:41 10/08/19 09:41 10/08/19 07:00 Intake & Output 10/05/19 10/06/19 10/07/19 10/08/19 23:59 23:59 23:59 23:59 Intake Total 300 130 Balance 300 130 Weight 271 lb 9.6 oz Constitutional: No Distress, Calm Respiratory: Clear A&P Bilaterally Cardiovascular: S1 S2 Regular Rate and Rhythm no Murmurs Clicks or Gallops Gastrointestinal: Soft Benign Normal Bowel Sounds Ext: Negative Edema Labs: Troponin, BNP 10/07/19 18:00 Troponin I 0.02 CBC, BMP 10/08/19 05:46 10/08/19 05:46 Hepatic Panel Total Bilirubin 0.3 mg/dL (0.2-1) 10/08/19 05:46 AST 14 U/L (15-37) L 10/08/19 05:46 ALT 18 U/L (13-61) 10/08/19 05:46 Alkaline Phosphatase 75 U/L (45-117) 10/08/19 05:46 Albumin 2.9 g/dl (3.4-5.0) L 10/08/19 05:46 INR, PTT INR 0.99 (0.83-1.09) 10/07/19 09:22 Echocardiography revealed normal left ventricular size and systolic function with LVEF of 60%, mild left atrial dilatation, mild thickening of the mitral valve leaflets with mild mitral valve regurgitation Assessment/Plan ASSESSMENT: 1. 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 Hypertension 3. Diabetes mellitus 4. Abnormal TSH suggestive of hypothyroidism 5. Morbid obesity PLAN: 1. Continue Toprol-XL therapy and dose titration as needed and as tolerated 2. Ideally patient should be initiated on ELISSA inhibitor or angiotensin receptor reji considering the above noted history of diabetes mellitus, outpatient initiation 3. Additional evaluation and intervention to be considered on outpatient basis including option of proceeding with electrophysiology study and radiofrequency ablation of the above-noted paroxysmal supraventricular tachycardia versus lifelong medical therapy administration/can be discharged from the c ardiovascular point of view Felipe Giron M.D.
== END 2019-10-08 12:55 | disposition home or self-care (01) ==
LOC: JER 09:20 → INTOOBSV 09:47 → UNDOADMOB 09:47 → JERBED 09:47 → J4W 18:46 → JERBED 18:57 → J4W 18:57
PROVIDERS: ADMIT Internal Medicine; ATTEND Internal Medicine
PROC: 3E033GC Introduction of Other Therapeutic Substance into Peripheral Vein, Percutaneous Approach (ICD-10-PCS; principal; 2019-10-07)
PROC: 3E0337Z Introduction of Electrolytic and Water Balance Substance into Peripheral Vein, Percutaneous Approach (ICD-10-PCS; 2019-10-07)
DX: I47.1 Supraventricular tachycardia (principal); I10 Essential (primary) hypertension; E11.9 Type 2 diabetes mellitus without complications; E66.01 Morbid (severe) obesity due to excess calories; Z68.41 Body mass index [BMI] 40.0-44.9, adult
CPT/HCPCS: 36415; 71045-TC-FY; 80053; 82550; 82962; 83036; 83735; 84443; 84484; 84703; 85025; 85610; 85730; 93306-TC; 96361; 96374; 99285-25; G0378; J7030

== ENCOUNTER 2020-06-22 05:09 | Day surgery (SDC) | payer OTHER ==
[2020-06-16 17:41] VITALS: BMI 27.3
[2020-06-22] MEDS ORDERED: MIDAZOLAM HCL 2 MG/2 ML SINGLE DOSE VIAL ONE (10:25)
[2020-06-22] MEDS ORDERED: PROPOFOL 20 ML ONE (10:25)
[2020-06-22] MEDS ORDERED: oxyCODONE HCL 5 MG TABLET PO PRN (11:13)
[2020-06-22] MEDS ORDERED: ONDANSETRON 4 MG/2 ML VIAL IVPUSH PRN (11:13)
[2020-06-22] MEDS ORDERED: LACTATED RINGERS SOLUTION 1,000 ML IV SCH (11:15)
[2020-06-22] MEDS ORDERED: IBUPROFEN 400 MG TABLET (FP) PO PRN (11:42)
[2020-06-22] MEDS ORDERED: ACETAMINOPHEN 325 MG TABLET (FP) PO PRN (11:42)
[2020-06-22] MEDS ORDERED: DEXAMETHASONE SOD PHOSPHATE 4 MG/1 ML VIAL ONE (12:03)
[2020-06-22] MEDS ORDERED: KETOROLAC TROMETHAMINE 30 MG/1 ML VIAL ONE (12:03)
[2020-06-22 16:16] VITALS: BP 125/75; PULSE 70; TEMP 98.4
== END 2020-06-22 16:00 | disposition home or self-care (01) ==
LOC: JASU-SURG 05:09
PROVIDERS: ATTEND Obstetrics & Gynecology
PROC: 0UDB8ZX Extraction of Endometrium, Via Natural or Artificial Opening Endoscopic, Diagnostic (ICD-10-PCS; 2020-06-22)
PROC: 0UB98ZZ Excision of Uterus, Via Natural or Artificial Opening Endoscopic (ICD-10-PCS; principal; 2020-06-22 10:00)
PROC: 0UB98ZX Excision of Uterus, Via Natural or Artificial Opening Endoscopic, Diagnostic (ICD-10-PCS; 2020-06-22 10:00)
DX: N84.0 Polyp of corpus uteri (principal); D25.0 Submucous leiomyoma of uterus
CPT/HCPCS: 84703; 88305-TC; 94760

== ENCOUNTER 2021-11-26 14:57 | Emergency (ER) | payer OTHER ==
[2021-11-26 15:07] VITALS: BP 111/76; PULSE 96; TEMP 98.7; BMI 42.5
[2021-11-26] MEDS ORDERED: ACETAMINOPHEN/CAFFEINE/BUTALBITAL 1 TAB ONE (16:03)
[2021-11-26] MEDS ORDERED: ACETAMINOPHEN/CAFFEINE/BUTALBITAL 1 TAB PO ONE (16:09)
[2021-11-26] MEDS ORDERED: SODIUM CHLORIDE 0.9% 500 ML INFUS.BAG IV ONE (16:09)
[2021-11-26 16:19] LABS: BASO % 0.6 % (0-2.0); EOS % 4.2 % (0-4.5); HEMATOCRIT 37.1 % (32.4-45.2); HEMOGLOBIN 12.2 GM/dL (10.7-15.3); LYMPH % 36.2 % (8-40); MCH 26.6 pg (25.7-33.7); MCHC 32.8 g/dl (32.0-36.0); MEAN CELL VOLUME 81.3 fl (80-96); MEAN PLT VOLUME 8.2 fl (7.5-11.1); MONO % 5.3 % (3.8-10.2); NEUT % 53.7 % (42.8-82.8); PLATELET COUNT 353 10^3/uL (134-434); RBC 4.57 M/mm3 (3.60-5.2); RDW 13.5 % (11.6-15.6); WHITE BLOOD COUNT 8.2 K/mm3 (4.0-10.0)
[2021-11-26 16:39] LABS: CALCIUM 9.2 mg/dL (8.5-10.1)
[2021-11-26 16:40] LABS: ALBUMIN 3.3 g/dl (3.4-5.0); BLOOD UREA NITROGEN 11.2 mg/dL (7-18)
[2021-11-26 16:43] LABS: CREATININE 0.6 mg/dL (0.55-1.3)
[2021-11-26 16:45] LABS: BILIRUBIN,TOTAL 0.2 mg/dL (0.2-1); TOT PROT 7.9 g/dl (6.4-8.2)
[2021-11-26] MEDS ORDERED: diazePAM CARPU-JECT 10 MG/2 ML DISP.SYRIN IVPUSH ONE (16:47)
[2021-11-26] MEDS ORDERED: diazePAM 5 MG TABLET ONE (17:31)
[2021-11-26] MEDS ORDERED: diazePAM 5 MG TABLET PO ONE (17:31)
== END 2021-11-26 18:50 | disposition home or self-care (01) ==
LOC: JER 14:57
DX: R51.9 Headache, unspecified (principal)
CPT/HCPCS: 36415; 70450-TC; 80053; 85025; 99284-25

== ENCOUNTER 2021-12-02 20:18 | Emergency (ER) | payer OTHER ==
[2021-12-02 20:34] VITALS: BP 124/69; PULSE 98; TEMP 97.8; BMI 42.5
[2021-12-02] MEDS ORDERED: SODIUM CHLORIDE 0.9% 500 ML INFUS.BAG IV ONE (21:03)
[2021-12-02] MEDS ORDERED: METOCLOPRAMIDE HCL INJECTION 10 MG/2 ML VIAL IVPUSH ONE (21:08)
[2021-12-02] MEDS ORDERED: METOCLOPRAMIDE HCL INJECTION 10 MG/2 ML VIAL ONE (21:15)
[2021-12-02] MEDS ORDERED: ACETAMINOPHEN INJECTION 100 ML IVPB ONE (21:19)
[2021-12-02] MEDS ORDERED: ACETAMINOPHEN 1000 MG/100 ML BAG IVPB ONE (21:19)
[2021-12-02 21:39] LABS: BASO % 0.5 % (0-2.0); EOS % 4.4 % (0-4.5); HEMATOCRIT 36.5 % (32.4-45.2); LYMPH % 30.9 % (8-40); MCH 26.7 pg (25.7-33.7); MCHC 32.9 g/dl (32.0-36.0); MEAN CELL VOLUME 81.2 fl (80-96); MEAN PLT VOLUME 8.2 fl (7.5-11.1); MONO % 7.3 % (3.8-10.2); NEUT % 56.9 % (42.8-82.8); PLATELET COUNT 311 10^3/uL (134-434); RBC 4.49 M/mm3 (3.60-5.2); RDW 13.6 % (11.6-15.6); WHITE BLOOD COUNT 8.6 K/mm3 (4.0-10.0)
[2021-12-02 21:45] LABS: PH,URINE 7.5 (5.0-8.0); URINE APPEARANCE CLEAR; URINE BILIRUBIN NEGATIVE (NEGATIVE); URINE COLOR YELLOW; URINE GLUCOSE (UA) NEGATIVE (NEGATIVE); URINE KETONE NEGATIVE (NEGATIVE); URINE LEUK ESTERASE NEGATIVE (NEGATIVE); URINE NITRITE NEGATIVE (NEGATIVE); URINE PROTEIN NEGATIVE (NEGATIVE); URINE UROBILINOGEN 0.2 mg/dL (0.2-1.0)
[2021-12-02 21:57] LABS: CALCIUM 9.6 mg/dL (8.5-10.1)
[2021-12-02 21:58] LABS: ALBUMIN 3.3 g/dl (3.4-5.0); BLOOD UREA NITROGEN 6.4 mg/dL (7-18)
[2021-12-02 22:01] LABS: CREATININE 0.5 mg/dL (0.55-1.3)
[2021-12-02 22:03] LABS: BILIRUBIN,TOTAL 0.2 mg/dL (0.2-1); TOT PROT 7.8 g/dl (6.4-8.2)
== END 2021-12-02 23:46 | disposition home or self-care (01) ==
LOC: JER 20:18
PROC: 3E0333Z Introduction of Anti-inflammatory into Peripheral Vein, Percutaneous Approach (ICD-10-PCS; principal; 2021-12-02)
PROC: 3E033GC Introduction of Other Therapeutic Substance into Peripheral Vein, Percutaneous Approach (ICD-10-PCS; 2021-12-02)
DX: R53.1 Weakness (principal)
CPT/HCPCS: 36415; 71045-TC-FY; 80053; 81003; 84703; 85025; 87086; 93005; 93010; 99285-25

== ENCOUNTER 2022-02-12 15:18 | Emergency (ER) | payer OTHER ==
[2022-02-12 15:31] VITALS: BP 113/74; PULSE 90; RESP 16; TEMP 98.8; BMI 43.5
[2022-02-12] MEDS ORDERED: diphenhydrAMINE HCL 50 MG CAPSULE PO ONE (15:56)
[2022-02-12] MEDS ORDERED: DEXAMETHASONE SOD PHOSPHATE 10 MG/1 ML VIAL IM ONE (15:57)
[2022-02-12] MEDS ORDERED: diphenhydrAMINE HCL 25 MG CAPSULE (FP) PO ONE (15:58)
[2022-02-12] MEDS ORDERED: DEXAMETHASONE SOD PHOSPHATE 10 MG/1 ML VIAL ONE (15:58)
== END 2022-02-12 16:15 | disposition home or self-care (01) ==
LOC: JERFT 15:18 → JER 15:18 → JERFT 16:15
PROC: 3E023NZ Introduction of Analgesics, Hypnotics, Sedatives into Muscle, Percutaneous Approach (ICD-10-PCS; principal; 2022-02-12)
DX: R21 Rash and other nonspecific skin eruption (principal)
CPT/HCPCS: 99283-25; J1100

== ENCOUNTER 2022-08-25 16:37 | Emergency (ER) | payer OTHER ==
[2022-08-25 16:48] VITALS: BP 119/67; PULSE 93; RESP 16; TEMP 98; BMI 41.9
[2022-08-25] MEDS ORDERED: diphenhydrAMINE HCL 25 MG CAPSULE (FP) PO ONE ×2 (17:47→17:50)
[2022-08-25] MEDS ORDERED: DEXAMETHASONE SOD PHOSPHATE 4 MG/1 ML VIAL IM ONE (17:47)
[2022-08-25] MEDS ORDERED: DEXAMETHASONE SOD PHOSPHATE 4 MG/1 ML VIAL ONE (17:51)
== END 2022-08-25 19:24 | disposition home or self-care (01) ==
LOC: JER 16:37 → JERFT 16:37
PROC: 3E023GC Introduction of Other Therapeutic Substance into Muscle, Percutaneous Approach (ICD-10-PCS; principal; 2022-08-25)
DX: L50.9 Urticaria, unspecified (principal)
CPT/HCPCS: 99284-25